=== PATIENT | male | born 1980 | race Caucasian/White ===

== ENCOUNTER 2019-12-17 12:40 | Emergency (ER) | payer MEDICAID, SELFPAY ==
[2019-12-17 12:54] VITALS: BP 128/68; PULSE 72; RESP 13; TEMP 37; O2SAT 99
--- NOTE | 2019-12-17 18:43 | ED.WOUNDLAC ---
HPI - Wound/Laceration General Chief Complaint: Wound/Laceration Stated Complaint: Needs domingo removed from head Time Seen by Provider: 12/17/19 12:40 Source: patient Mode of arrival: Ambulatory Limitations: no limitations History of Present Illness HPI narrative: 39-year-old male daily smoker returns for removal of domingo. He was seen and evaluated about a week ago when he had a scalp laceration and had 3 domingo placed. Since and he has had no ongoing symptoms or trouble. No headaches, nausea or vomiting. No pain, bleeding or drainage Onset (ago): day(s) Location: scalp Place: home Patient tetanus UTD: Yes Context: accidental Associated symptoms: none Related Data Home Medications Medication Instructions Recorded Confirmed [VICODIN] PRN #0 07/12/12 Previous Rx's Medication Instructions Recorded HYDROCODONE/ACET (HYDROCODONE 0 tab PO Q6HP #15 07/12/12 BITARTRATE-ACETAMINOPHEN) diphenoxylate-atropine 2.5 mg PO Q4HP #30 07/12/12 Review of Systems Constitutional Constitutional: Denies chills, Denies fatigue, Denies fever(s), Denies frequent falls, Denies lethargy and Denies weakness Eyes Eyes: Denies change in vision, Denies eye discharge, Denies irritation and Denies loss of vision ENT Ears, Nose, Mouth, and Throat: Denies change in voice, Denies dizziness, Denies neck pain, Denies sore throat and Denies throat swelling Cardiovascular Cardiovascular: Denies chest pain, Denies irregular heart rhythm, Denies lightheadedness, Denies palpitations, Denies dyspnea, Denies dyspnea on exertion and Denies orthopnea Respiratory Respiratory: Denies cough, Denies dyspnea, Denies dyspnea on exertion and Denies wheezing Gastrointestinal Gastrointestinal: Denies abdominal pain, Denies change in bowel habits, Denies diarrhea, Denies nausea and Denies vomiting Genitourinary Genitourinary: Denies hematuria, Denies flank pain, Denies urinary incontinence and Denies urinary urgency Musculoskeletal Musculoskeletal: Denies back pain, Denies muscle weakness, Denies neck pain, Denies numbness and Denies tingling Integumentary/Breasts Skin/Breast: Denies pruritus, Denies erythema, Denies rash and Reports wounds Neurologic Neurologic: Denies behavioral changes, Denies confusion, Denies dizziness, Denies frequent falls, Denies loss of vision, Denies numbness, Denies tingling and Denies weakness Psychiatric Psychiatric: Denies anxiety, Denies behavioral changes, Denies confusion, Denies depression, Denies homicidal ideation and Denies suicidal ideation Endocrine Endocrine: Denies fatigue, Denies flushing and Denies palpitations Hematologic/Lymphatic Hematologic/Lymphatic: Denies easy bruising Allergic/Immunologic Allergic/Immunologic: Denies urticaria, Denies throat swelling and Denies wheezing Patient History Social History Smoking Status: Current every day smoker Smoking Status: Current every day smoker Substance Use Type: does not use Exam Narrative Exam Narrative: GEN: AOx3 and in mild distress HEAD: Appropriately healing wound, [address], easily removed. No wound dehiscence, surrounding erythema, warmth, induration or drainage EYES: Pupils are equal, round, and reactive to light and accommodation. Extraoccular muscles are intact bilaterally. There is no subconjunctival hemorrhage or exudate. CHEST: Lungs are clear to auscultation bilaterally and free of wheezes, rales, or rhonchi. Heart rate is regular rhythm, there are no murmurs, clicks, rubs, or gallops. There is no chest wall tenderness. ABD: Abdomen is soft and nontender. There is no guarding or rebound. Bowel sounds are normal in all 4 quadrants. There is no mass or organomegaly. EXT: Full painless ROM of all extremities with no loss of sensation or strength. SKIN: Warm, pink, and dry. No erythema or rash Initial Vital Signs Initial Vital Signs: Vital Signs Temperature 98.6 F 12/17/19 12:54 Pulse Rate 72 12/17/19 12:54 Respiratory Rate 13 12/17/19 12:54 Blood Pressure 128/68 12/17/19 12:54 Pulse Oximetry 99 12/17/19 12:54 Course Vital Signs Vital signs: Vital Signs - 8 hr 12/17/19 12:54 Temperature 98.6 F Pulse Rate 72 Respiratory Rate 13 Blood Pressure 128/68 Pulse Oximetry 99 Discharge Plan Departure Patient Disposition: Home Clinical Impression: Encounter for removal of domingo Laceration of head Qualifiers: Encounter type: subsequent encounter Location of open wound of head: scalp Foreign body presence: without foreign body Qualified Code(s): S01.01XD - Laceration without foreign body of scalp, subsequent encounter Discharge Date/Time: 12/17/19 13:00 Activity Restrictions/Additional Instructions: *You have been diagnosed with [scalp laceration, staple removal] *What to do: *Take medications as directed *Follow up with your primary care provider in 2-3 days, call for an appointment. Let them know you were seen in the Emergency Department and that we ask that you be seen in follow up *Return to ER if you should have any new, worsening or concerning symptoms, such as [ ] Prescriptions: No Action [VICODIN] PRN Qty: 0 RF: 0 diphenoxylate-atropine 2.5 MG/0.025 MG tablet 2.5 mg PO Q4HP Qty: 30 RF: 0 HYDROCODONE/ACET (HYDROCODONE BITARTRATE-ACETAMINOPHEN) 0 tab PO Q6HP Qty: 15 RF: 0
== END 2019-12-17 13:00 | disposition home or self-care (01) ==
PROVIDERS: Emergency Provider Emergency Medicine
DX: Z48.02 Encounter for removal of sutures (principal); S01.01XD Laceration without foreign body of scalp, subsequent encounter
CPT/HCPCS: 99281

== ENCOUNTER 2020-02-02 20:06 | Emergency (ER) | payer MEDICAID, SELFPAY ==
[2020-02-02 20:14] VITALS: BP 169/110; PULSE 89; RESP 16; O2SAT 98; BMI 23.0
--- NOTE | 2020-02-02 20:22 | ED.SKABFB ---
HPI - Skin/Abscess/Foreign Bdy General Chief complaint: Skin/Abscess/Foreign Body Stated complaint: states spider bite right knee Time Seen by Provider: 02/02/20 20:14 Source: patient Mode of arrival: Ambulatory Limitations: no limitations History of Present Illness HPI narrative: 40-year-old male here for evaluation of a ?spider bite? on his right knee. He states that he has had redness worsening in his right knee with warmth and tenderness for the past 3 days. He is able to ambulate. No fevers. Has never had an abscess in the past. Related Data Home Medications Medication Instructions Recorded Confirmed [VICODIN] PRN #0 07/12/12 Previous Rx's Medication Instructions Recorded HYDROCODONE/ACET (HYDROCODONE 0 tab PO Q6HP #15 07/12/12 BITARTRATE-ACETAMINOPHEN) diphenoxylate-atropine 2.5 mg PO Q4HP #30 07/12/12 doxycycline hyclate 100 mg PO BID #13 tab 02/02/20 Allergies Allergy/AdvReac Type Severity Reaction Status Date / Time Penicillins Allergy Verified 02/02/20 20:27 Review of Systems Constitutional Constitutional: Denies fever(s) Musculoskeletal Musculoskeletal: Denies myalgias and Denies arthralgias Integumentary/Breasts Comments: Redness the right knee Patient History Medical History Healthy adult (Acute) Social History Smoking Status: Current every day smoker Smoking Status: Current every day smoker alcohol intake frequency: a few times a month Substance Use Type: marijuana Exam Initial Vital Signs Initial Vital Signs: Vital Signs Pulse Rate 89 02/02/20 20:14 Respiratory Rate 16 02/02/20 20:14 Blood Pressure 169/110 H 02/02/20 20:14 Pulse Oximetry 98 02/02/20 20:14 Const General: cooperative, comfortable and well developed Limitations: mental status not altered HENMT Head: normal to inspection and normocephalic Resp Effort & Inspection: normal respiratory effort Cardio Rate: regular rate Skin Other: Large area of redness the anterior aspect of the right knee extending to the medial side. Does extend up his thigh to the mid thigh. Neuro General: alert and awake Cognition: normal cognition Course Orders Ordered: Discontinued Medications Doxycycline Hyclate (Vibramycin) 100 mg PO NOW ONE Stop: 02/02/20 20:23 Last Admin: 02/02/20 20:30 Dose: 100 mg Documented by: MARY JANE Vital Signs Vital signs: Vital Signs - 8 hr 02/02/20 20:14 Pulse Rate 89 Respiratory Rate 16 Blood Pressure 169/110 H Pulse Oximetry 98 MDM - Skin/Abscess/Foreign Bdy MDM Narrative Medical decision making narrative: Bedside ultrasound does not show any underlying abscess. Has not been on any antibiotics. The area was outlined. He is given 1st dose of antibiotics here in the ER was sent home with a prescription for the remainder. Was given return precautions and follow-up instructions. He expressed understanding agreement plan. Discharge Plan Departure Patient Disposition: Home Clinical Impression: Cellulitis Qualifiers: Site of cellulitis: extremity Site of cellulitis of extremity: lower extremity Laterality: right Qualified Code(s): L03.115 - Cellulitis of right lower limb Discharge Date/Time: 02/02/20 20:32 Instructions: DI for Cellulitis -- Adult Activity Restrictions/Additional Instructions: You can shower like normal. A prescription for doxycycline was electronically transmitted to [facility]. Pick it up tomorrow and start taking it as directed. If you start to develop fevers or the redness extends outside of the line that we anai this evening please return to the emergency department for further evaluation. Prescriptions: New doxycycline hyclate 100 mg tablet 100 mg PO BID Qty: 13 RF: 0 No Action [VICODIN] PRN Qty: 0 RF: 0 diphenoxylate-atropine 2.5 MG/0.025 MG tablet 2.5 mg PO Q4HP Qty: 30 RF: 0 HYDROCODONE/ACET (HYDROCODONE BITARTRATE-ACETAMINOPHEN) 0 tab PO Q6HP Qty: 15 RF: 0
[2020-02-02] MEDS: DOXYCYCLINE HYCLATE 100 MG TABLET PO (20:30)
== END 2020-02-02 20:32 | disposition home or self-care (01) ==
PROVIDERS: Emergency Provider Emergency Medicine
DX: L03.115 Cellulitis of right lower limb (principal)
CPT/HCPCS: 99283

== ENCOUNTER 2020-07-21 17:29 | Emergency (ER) | payer MEDICAID, SELFPAY ==
[2020-07-21 17:48] VITALS: BP 162/97; PULSE 78; RESP 18; TEMP 37; O2SAT 98
[2020-07-21] MEDS: BUPIVACAINE 0.5% W/ EPI (PF) 30 ML VIAL 5 ML SUBCUT (18:01)
[2020-07-21] MEDS: DOXYCYCLINE HYCLATE 100 MG TABLET PO (18:02)
[2020-07-21] MEDS: HYDROCODONE/ACET 5/325 PREPACK 1 BOTTLE MISC (18:03)
[2020-07-21] MEDS: ONDANSETRON 4 MG ODT PREPACK 1 BOTTLE MISC (18:03)
--- NOTE | 2020-07-21 18:37 | ED_ITS ---
HPI - Skin/Abscess/Foreign Bdy General Chief complaint: Skin/Abscess/Foreign Body Stated complaint: Spider Bite On Left Leg Time Seen by Provider: 07/21/20 17:37 Source: patient Mode of arrival: Ambulatory Limitations: no limitations History of Present Illness HPI narrative: 40M daily smoker with history of cellulitis presents with a chief complaint of a painful, red, sore with drainage of his left anterior thigh. He denies fever, chills, nausea, or vomiting. Denies any known or obvious break in the skin or sores. He does mention that perhaps a spider bit him on thigh MD complaint: abscess/boil Onset (ago): day(s) Tetanus up to date: yes Location: LLE Severity: moderate Quality: aching Pain Consistency: constant Relieving factors: none Exacerbating factors: palpation Context: none Associated symptoms: denies other symptoms Treatments prior to arrival: none Related Data Home Medications Medication Instructions Recorded Confirmed [VICODIN] PRN #0 07/12/12 Previous Rx's Medication Instructions Recorded HYDROCODONE/ACET (HYDROCODONE 0 tab PO Q6HP #15 07/12/12 BITARTRATE-ACETAMINOPHEN) diphenoxylate-atropine 2.5 mg PO Q4HP #30 07/12/12 doxycycline hyclate 100 mg PO BID #13 tab 02/02/20 doxycycline hyclate 100 mg PO BID #20 tab 07/21/20 hydrocodone-acetaminophen 1 tab PO Q4-6H PRN #20 tab 07/21/20 Allergies Allergy/AdvReac Type Severity Reaction Status Date / Time Penicillins Allergy Verified 02/02/20 20:27 Review of Systems Constitutional Constitutional: Denies chills, Denies fatigue, Denies fever(s), Denies frequent falls, Denies lethargy and Denies weakness Eyes Eyes: Denies change in vision, Denies eye discharge, Denies irritation and Denies loss of vision ENT Ears, Nose, Mouth, and Throat: Denies change in voice, Denies dizziness, Denies neck pain, Denies sore throat and Denies throat swelling Cardiovascular Cardiovascular: Denies chest pain, Denies irregular heart rhythm, Denies li ghtheadedness, Denies palpitations, Denies dyspnea, Denies dyspnea on exertion and Denies orthopnea Respiratory Respiratory: Denies cough, Denies dyspnea, Denies dyspnea on exertion and Denies wheezing Gastrointestinal Gastrointestinal: Denies abdominal pain, Denies change in bowel habits, Denies diarrhea, Denies nausea and Denies vomiting Musculoskeletal Musculoskeletal: Denies neck pain and Denies numbness Integumentary/Breasts Skin/Breast: Denies pruritus, Reports erythema, Denies rash, Reports skin pain, Reports skin swelling and Reports wounds Neurologic Neurologic: Denies behavioral changes, Denies confusion, Denies dizziness, Denies frequent falls, Denies loss of vision, Denies numbness and Denies weakness Psychiatric Psychiatric: Denies anxiety, Denies behavioral changes, Denies confusion, Denies depression, Denies homicidal ideation and Denies suicidal ideation Endocrine Endocrine: Denies fatigue, Denies flushing and Denies palpitations Hematologic/Lymphatic Hematologic/Lymphatic: Denies easy bruising Allergic/Immunologic Allergic/Immunologic: Denies urticaria, Denies throat swelling and Denies wheezing Patient History Medical History Healthy adult (Acute) Social History Smoking Status: Current every day smoker Smoking Status: Current every day smoker alcohol intake frequency: a few times a month Substance Use Type: marijuana Exam Narrative Exam Narrative: GEN: AOx3 and in mild distress EYES: Pupils are equal, round, and reactive to light and accommodation. Extraoccular muscles are intact bilaterally. There is no subconjunctival hemorrhage or exudate. CHEST: Lungs are clear to auscultation bilaterally and free of wheezes, rales, or rhonchi. Heart rate is regular rhythm, there are no murmurs, clicks, rubs, or gallops. There is no chest wall tenderness. ABD: Abdomen is soft and nontender. There is no guarding or rebound. Bowel sounds are normal in all 4 quadrants. There is no mass or organomegaly. EXT: Full painless ROM of all extremities with no loss of sensation or strength. SKIN: 3 x 3 cm with significant surrounding induration and erythema lesion, spontaneously draining. Otherwise, warm, pink, and dry. No erythema or rash Initial Vital Signs Initial Vital Signs: Vital Signs Temperature 98.6 F 07/21/20 17:48 Pulse Rate 78 07/21/20 17:48 Respiratory Rate 18 07/21/20 17:48 Blood Pressure 162/97 H 07/21/20 17:48 Pulse Oximetry 98 07/21/20 17:48 Procedures Abscess I/D I&D #1: Site: lower extremity Side (if applicable): left Local Anesthetic: bupivacaine 0.25% and with epi Amount of anesthesia used (mL): 6 Technique: incised with #11 blade Amount of fluid expressed (mL): 4 Irrigation: No Packing used?: iodoform Course Orders Ordered: Discontinued Medications Hydrocodone Bitart/Acetaminophen (Vicodin 5/325 Prepack) 1 bottle MISC SEEINSTR ONE Stop: 07/21/20 17:50 Last Admin: 07/21/20 18:03 Dose: 1 bottle Documented by: MARISABEL Bupivacaine HCl/Epinephrine Bitart (Sensorcaine 0.5% W/ Epi (Pf)) 5 ml SUBCUT NOW ONE Stop: 07/21/20 17:49 Last Admin: 07/21/20 18:01 Dose: 5 ml Documented by: MARISABEL Doxycycline Hyclate (Vibramycin) 100 mg PO NOW ONE Stop: 07/21/20 17:50 Last Admin: 07/21/20 18:02 Dose: 100 mg Documented by: MARISABEL Ondansetron HCl (Zofran Odt Prepack) [facility] Stop: 07/21/20 17:50 Last Admin: 07/21/20 18:03 Dose: 1 bottle Documented by: MARISABEL Vital Signs Vital signs: Vital Signs - 8 hr 07/21/20 17:48 Temperature 98.6 F Pulse Rate 78 Respiratory Rate 18 Blood Pressure 162/97 H Pulse Oximetry 98 Discharge Plan Departure Patient Disposition: Home Clinical Impression: Abscess of skin or subcutaneous tissue Qualifiers: Site of cutaneous abscess: extremity Site of cutaneous abscess of extremity: lower extremity Laterality: left Qualified Code(s): L02.416 - Cutaneous abscess of left lower limb Instructions: DI for Skin Abscess Activity Restrictions/Additional Instructions: *You have been diagnosed with [abscess with cellulitis left anterior thigh] *What to do: *Take medications as directed *Follow up with your primary care provider in 2-3 days, call for an appointment. Let them know you were seen in the Emergency Department and that we ask that you be seen in follow up. If you are unable to follow-up with your doctor please return to the emergency department in 48-72 hours for re- evaluation *Return to ER if you should have any new, worsening or concerning symptoms Prescriptions: New hydrocodone-acetaminophen 5-325 mg tablet 1 tab PO Q4-6H PRN (Reason: pain) Qty: 20 RF: 0 doxycycline hyclate 100 mg tablet 100 mg PO BID Qty: 20 RF: 0 No Action [VICODIN] PRN Qty: 0 RF: 0 diphenoxylate-atropine 2.5 MG/0.025 MG tablet 2.5 mg PO Q4HP Qty: 30 RF: 0 HYDROCODONE/ACET (HYDROCODONE BITARTRATE-ACETAMINOPHEN) 0 tab PO Q6HP Qty: 15 RF: 0 doxycycline hyclate 100 mg tablet 100 mg PO BID Qty: 13 RF: 0
[2020-07-21 19:03] VITALS: BP 154/92; PULSE 77; RESP 18; O2SAT 100
== END 2020-07-21 19:03 | disposition home or self-care (01) ==
PROVIDERS: Emergency Provider Emergency Medicine
DX: L02.416 Cutaneous abscess of left lower limb (principal)
CPT/HCPCS: 10060; 99283

== ENCOUNTER 2022-05-16 21:58 | Emergency (ER) | payer MEDICAID, SELFPAY ==
[2022-05-16 22:07] VITALS: BP 161/97; PULSE 92; RESP 18; TEMP 36.7; O2SAT 100; BMI 23.0
--- NOTE | 2022-05-16 22:35 | ED_ITS ---
HPI - Abdominal Pain General Chief Complaint: Abdominal Pain Stated Complaint: ABD pain, lower Time Seen by Provider: 05/16/22 22:14 Source: patient Mode of arrival: Ambulatory Limitations: no limitations History of Present Illness HPI narrative: This is a 42-year-old male with no known medical issues who has pain in the left groin, patient states that he started having pain after lifting heavy furniture. Sometimes feels a lump in that area the pain radiates down to his testicle occasionally and up into his abdomen. Denies fevers or chills. He is had some nausea occasionally, no vomiting. He has been having normal bowel movements regularly. Patient denies dysuria but does have increased pain in his abdomen and at the site of the lump when he urinates, he denies any discharge, hematuria or back or flank pain. Patient does not appreciate any swelling of his testicles. He has not had any prior surgeries denies any daily medications. He does smoke, occasional alcohol, THC but no other illicit. Does state that he needs note if he is prescribed any narcotics or takes any as he is currently on parole. Related Data Home Medications Medication Instructions Recorded Confirmed [VICODIN] PRN ##0 07/12/12 Previous Rx's Medication Instructions Recorded HYDROCODONE/ACET (HYDROCODONE 0 tab PO Q6HP ##15 07/12/12 BITARTRATE-ACETAMINOPHEN) diphenoxylate-atropine 2.5 2.5 mg PO Q4HP ##30 07/12/12 mg-0.025 mg tablet doxycycline hyclate 100 mg tablet 100 mg PO BID #13 tabs 02/02/20 doxycycline hyclate 100 mg tablet 100 mg PO BID #20 tabs 07/21/20 hydrocodone 5 mg-acetaminophen 325 1 tab PO Q4-6H PRN pain #20 tabs 07/21/20 mg tablet meloxicam 7.5 mg tablet 7.5 mg PO BID PRN pain #20 tabs 05/17/22 Allergies Allergy/AdvReac Type Severity Reaction Status Date / Time Penicillins Allergy Verified 02/02/20 20:27 Review of Systems Review of Systems ROS Unobtainable: All systems reviewed & are unremarkable except as noted in HPI and below Patient History Medical History (Updated 05/16/22 @ 23:08 by Isis Fairchild DO) Healthy adult Social History Smoking Status: Current every day smoker Smoking Status: Current every day smoker alcohol intake frequency: a few times a month Substance Use Type: marijuana Exam Narrative Exam Narrative: GENERAL: Alert and oriented x three, male in mild distress HEENT: Head normocephalic, atraumatic, EOMI, pupils reactive, face symmetric, moist mucous membranes NECK: Supple, full range of motion CARDIOVASCULAR: Regular rate and rhythm without murmurs, rubs or gallops. RESPIRATORY: Breath sounds equal bilaterally, no wheezes rales or rhonchi. ABDOMEN: Soft, nontender. Normoactive bowel sounds all 4 quadrants. No guarding or rebound, rigidity, patient has sized mass at the left inguinal region that is reducible but tender, there is no large lump or change. : No CVA tenderness. Male: normal external examination, no penile discharge or lesions, testicles non-tender. EXTREMITIES: Normal range of motion, no clubbing or edema. Neurovascularly intact NEUROLOGICAL: Cranial nerves II through XII grossly intact. Moving all extremities SKIN: Warm, dry, no petechiae, no rashes or lesions. Initial Vital Signs Initial Vital Signs: Vital Signs Temperature 98.1 F 05/16/22 22:07 Pulse Rate 92 H 05/16/22 22:07 Respiratory Rate 18 05/16/22 22:07 Blood Pressure 161/97 H 05/16/22 22:07 Pulse Oximetry 100 05/16/22 22:07 Oxygen Delivery Method 05/16/22 22:07 Course Orders Ordered: ED Orders 05/16/22 22:49 US abdomen limited Stat Discontinued Medications Ketorolac Tromethamine (Ketorolac 30 Mg/Ml Vial) 30 mg IM NOW ONE Stop: 05/16/22 22:50 Last Admin: 05/16/22 22:55 Dose: 30 mg Documented By: AT Vital Signs Vital signs: Vital Signs - 8 hr 05/16/22 22:07 05/17/22 00:51 Temperature 98.1 F Pulse Rate 92 H 74 Respiratory Rate 18 14 Blood Pressure 161/97 H 130/77 Pulse Oximetry 100 98 Oxygen Delivery Method Room Air Room Air MDM - Abdominal Pain Imaging Data US - abdomen: Radiologist's Impression: [address] [address] Ultrasound Report Signed Patient: Wang Walters#: [id number] : 1980 Acct:[id number] Age/Sex: 42 / M Date of Service: 05/16/22 Loc: ED Accession Number: [id number] ?? Procedure: US abdomen limited Ordering Provider: Isis Fairchild D.O. PROCEDURE: US ABDOMEN LIMITED ? INDICATIONS:? Left inguinal pain, swelling, radiates to testicle. ? TECHNIQUE:? Real-time focused scanning was performed of the abdomen, with image documentation.? ? COMPARISON:? [facility], CT, ABDOMEN/PELVIS WITH CONTRAST, 07/04/2012, 10:23. ? FINDINGS:? ? There is a left inguinal hernia suggestive of a direct hernia demonstrated.? The hernia defect measures approximately 1.4 x 1.0 cm.? Herniated bowel contents cannot be fully excluded.? ? IMPRESSION:? ? 1. Left inguinal hernia demonstrated with bowel herniation not excluded.? Further evaluation may be obtained with CT if clinically indicated.? ? ? Dictated by: Linus Orantes M.D. on 05/17/2022 at 0:38 ? ? Approved by: Linus Orantes M.D. on 05/17/2022 at 0:40?? 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 There is a small area of swelling that is palpable left inguinal crease, it is reducible but quite tender. Patient does not have any other red flag symptoms necessitating CT imaging at this time. Patient would like to obtain ultrasound imaging but discussed sometimes hernias can slip back inside and not be seen. Ultrasound imaging does show hernia. They can not tell if there is any bowel appreciable but I was able to reduce here in the department. Patient given referral to follow-up with General surgery outpatient. Discharge Plan Departure Patient Disposition: Home Clinical Impression: Hernia, inguinal, left Instructions: Groin Hernia -- Adult Activity Restrictions/Additional Instructions: Follow-up with general surgery for evaluation and potential repair of an hernia. Referral is included below, call to set up a appointment. You may take Tylenol up to a 1000 mg every 6 hours as needed for pain. You may also take meloxicam 1 tablet every 12 hours as needed. Prescription sent to [facility] in [place]. Please return for fevers, rapidly worsening abdominal, back or flank pain, persistent vomiting, if you are unable to have a bowel movement, new or worse tatyana swelling of your testicles, pain, penile discharge or other new or concerning symptoms. Prescriptions: New meloxicam 7.5 mg tablet 7.5 mg PO BID PRN (Reason: pain) Qty: 20 0RF No Action [VICODIN] PRN Qty: 0 diphenoxylate-atropine 2.5 MG/0.025 MG tablet 2.5 mg PO Q4HP Qty: 30 0RF HYDROCODONE/ACET (HYDROCODONE BITARTRATE-ACETAMINOPHEN) 0 tab PO Q6HP Qty: 15 0RF doxycycline hyclate 100 mg tablet 100 mg PO BID Qty: 13 0RF hydrocodone-acetaminophen 5-325 mg tablet 1 tab PO Q4-6H PRN (Reason: pain) Qty: 20 0RF doxycycline hyclate 100 mg tablet 100 mg PO BID Qty: 20 0RF Referrals: Joe Phillips MD [Physician] - Miscellaneous,MD Zheng [Primary Care Provider] - Stand Alone Forms: Work Release Note Visit Report Forms: Patient Portal/API
--- NOTE | 2022-05-16 22:49 | DI.US.S_ITS ---
PROCEDURE: US ABDOMEN LIMITED INDICATIONS: Left inguinal pain, swelling, radiates to testicle. TECHNIQUE: Real-time focused scanning was performed of the abdomen, with image documentation. COMPARISON: [facility], CT, ABDOMEN/PELVIS WITH CONTRAST, 07/04/2012, 10:23. FINDINGS: There is a left inguinal hernia suggestive of a direct hernia demonstrated. The hernia defect measures approximately 1.4 x 1.0 cm. Herniated bowel contents cannot be fully excluded. IMPRESSION: 1. Left inguinal hernia demonstrated with bowel herniation not excluded. Further evaluation may be obtained with CT if clinically indicated. Dictated by: Linus Orantes M.D. on 05/17/2022 at 0:38 Approved by: Linus Orantes M.D. on 05/17/2022 at 0:40
[2022-05-16] MEDS: KETOROLAC 30 MG/ML VIAL IM (22:55)
[2022-05-17 00:51] VITALS: BP 130/77; PULSE 74; RESP 14; O2SAT 98
== END 2022-05-17 00:52 | disposition home or self-care (01) ==
PROVIDERS: Emergency Provider Emergency Medicine
DX: K40.90 Unilateral inguinal hernia, without obstruction or gangrene, not specified as recurrent (principal)
CPT/HCPCS: 76705; 96372; 99283; J1885